=== PATIENT | male | born 1960 | race Caucasian/White ===

== ENCOUNTER 2017-08-01 06:40 | Outpatient (CLI) | payer MEDICARE, MEDICAID ==
[2017-08-01 08:00] LABS: TOTAL HEMOGLOBIN 16.5 G/dl (14.0-18.0)
[2017-08-01] MEDS ORDERED: albuterol 2.5 MG/3 ML nebule NEB ONE (08:25)
== END 2017-08-01 23:59 | disposition home or self-care (01) ==
LOC: RT 06:40
PROVIDERS: ATTEND Registered Nurse General Practice
DX: R91.8 Other nonspecific abnormal finding of lung field (principal); J44.9 Chronic obstructive pulmonary disease, unspecified; F17.200 Nicotine dependence, unspecified, uncomplicated
CPT/HCPCS: 85018; 94060; 94640; 94727; 94729; 94760

== ENCOUNTER 2020-12-02 10:19 | Inpatient (IN) | payer MEDICARE, MEDICAID ==
[~2020-12-02] VITALS: Ht 165.1 cm; Wt 58.2 kg
[2020-12-02 10:57] LABS: BASOPHILS # (AUTO) 0.1 X10'3 (0-0.2); BASOPHILS % (AUTO) 0.7 % (0-1); EOSINOPHILS # (AUTO) 0.1 X10'3 (0-0.9); EOSINOPHILS % (AUTO) 0.6 % (0-6); HEMATOCRIT 41.2 % (42.0-52.0); HEMOGLOBIN 13.4 g/dl (14.0-17.9); LYMPHOCYTES # (AUTO) 2.4 X10'3 (1.1-4.8); LYMPHOCYTES % (AUTO) 24.9 % (21-51); MEAN CORPUSCULAR HEMOGLOBIN 28.2 PG (27.0-31.0); MEAN CORPUSCULAR HGB CONC 32.6 g/dL (33.0-36.5); MEAN CORPUSCULAR VOLUME 86.3 FL (78-98); MEAN PLATELET VOLUME 7.5 FL (7.4-10.4); MONOCYTES # (AUTO) 0.7 X10'3 (0-0.9); MONOCYTES % (AUTO) 7.4 % (2-12); NEUTROPHILS # (AUTO) 6.3 X10'3 (1.8-7.7); NEUTROPHILS % (AUTO) 66.4 % (42-75); PLATELET COUNT 339 X10'3 (140-440); RED BLOOD COUNT 4.77 X10'6 (4.70-6.10); RED CELL DISTRIBUTION WIDTH 14.3 % (11.5-14.5); WHITE BLOOD COUNT 9.5 X10'3 (4.5-11.0)
[2020-12-02 11:11] LABS: ALANINE AMINOTRANSFERASE 24 U/L (12-78); ALBUMIN 3.5 G/DL (3.4-5.0); ALBUMIN/GLOBULIN RATIO 1.1 (1.1-1.5); ALKALINE PHOSPHATASE 51 IU/L (46-116); ANION GAP 10 (8-16); ASPARTATE AMINO TRANSFERASE 20 U/L (10-37); BILIRUBIN,TOTAL 0.6 MG/DL (0.1-1.0); BLOOD UREA NITROGEN 10 MG/DL (7-18); BUN/CREATININE RATIO 11.4 (5.4-32.0); CALCIUM 8.6 MG/DL (8.5-10.1); CHLORIDE 106 MMOL/L (99-107); CREATININE 0.88 MG/DL (0.60-1.10); GLUCOSE 91 MG/DL (70-104); SODIUM 144 MMOL/L (135-145); TOTAL CARBON DIOXIDE 27.8 MMOL/L (24-32); TOTAL PROTEIN 6.8 G/DL (6.4-8.2); eGFR 88 ML/MIN
[2020-12-02 11:15] LABS: BILIRUBIN,DIRECT 0.2 MG/DL (0-0.3); LIPASE 66 U/L (73-393); TROPONIN I < 0.04 NG/ML (0.0-0.05)
[2020-12-02 12:02] VITALS: BP 91/70
--- NOTE | 2020-12-02 12:27 | NUR ---
PT REFUSING COVID SWAB, WILL NOTIFY PROVIDER.
[2020-12-02] MEDS ORDERED: ALBU18HF2 PO (12:51)
[2020-12-02] MEDS ORDERED: morphine 2 MG/ML inj. syringe IV PRN (12:55)
[2020-12-02] MEDS ORDERED: magnesium 4gm in 100ml NS 100 ML IV PRN (12:55)
[2020-12-02] MEDS ORDERED: ondansetron/PF 4mg/2ml inj IV PRN (12:55)
[2020-12-02] MEDS ORDERED: aminophylline 250mg/10ml inj. IV PRN (12:55)
[2020-12-02] MEDS ORDERED: acetaminophen 325mg tablet PO PRN ×2 (12:55)
[2020-12-02] MEDS ORDERED: magnesium 2GM in 50ml NS 50 ML IV PRN (12:55)
[2020-12-02] MEDS ORDERED: normal saline 1000ml 1,000 ML IV SCH (12:55)
[2020-12-02] MEDS ORDERED: metoprolol tartrate 1mg/ml inj IV PRN (12:55)
[2020-12-02] MEDS ORDERED: potassium Cl 20 mEq SR tablet PO PRN ×2 (12:55)
[2020-12-02] MEDS ORDERED: mag hydrox/Alum hydrox/simeth 30ml oral suspension PO PRN (12:55)
[2020-12-02] MEDS ORDERED: regadenoson 0.4mg/5ml syringe IV PRN (12:55)
[2020-12-02] MEDS ORDERED: nitroGLYCERIN 0.4mg SUBLingual tab SL PRN (12:55)
[2020-12-02] MEDS ORDERED: magnesium hydroxide 30ml (MOM) UD suspension PO PRN (12:55)
[2020-12-02] MEDS ORDERED: potassium Cl 40MEQ/1/2NS 520ml 520 ML IV PRN ×2 (12:55)
[2020-12-02] MEDS ORDERED: HYDROcodone/acetaminophen 5mg/325mg tablet PO PRN (12:55)
[2020-12-02] MEDS ORDERED: magnesium Cl slow-release 64mg tablet PO PRN (12:55)
[2020-12-02] MEDS ORDERED: CefTRIAXone 2gm/D5W 50ml BAG 50 ML IV ONE (13:00)
--- NOTE | 2020-12-02 13:49 | NUR ---
Patient left ama, states "he wont be acused of being on meth, the doctor asked twice and I will not get a covid swab from [facility] and I wont be put nex to covid people" patient then took all equipment and armband off. He did allow me to remove the Iv, I encouraged him to stay but he declined. Dr Diehl notified. Addendum: 12/02/20 at 1353 by HERNAN Patient declined to sign AMA form
[2020-12-02] MEDS ORDERED: albuterol 2.5 MG/3 ML nebule NEB SCH (14:00)
[2020-12-02] MEDS ORDERED: heparin, porcine 5000 units/ml vial SQ SCH (20:00)
[2020-12-02] MEDS ORDERED: K and/or MAG REPLACEMENT MC SCH (20:00)
[2020-12-02] MEDS ORDERED: temazepam 15mg capsule PO PRN (21:00)
== END 2020-12-02 13:45 | disposition left against medical advice (07) | DRG 191 ==
LOC: ER 10:19 → ED HOLD 12:52
PROVIDERS: ADMIT Internal Medicine; ATTEND Internal Medicine
DX: J44.1 Chronic obstructive pulmonary disease with (acute) exacerbation (principal); I24.9 Acute ischemic heart disease, unspecified; F17.210 Nicotine dependence, cigarettes, uncomplicated; Z20.822 Contact with and (suspected) exposure to COVID-19; Z53.29 Procedure and treatment not carried out because of patient's decision for other reasons; Z88.8 Allergy status to other drugs, medicaments and biological substances; Z79.899 Other long term (current) drug therapy
CPT/HCPCS: 36415; 71045; 80048; 80076; 83605; 83690; 84484; 85025; 87040; 93005; 99285; G0378